=== PATIENT | female | born 1985 | race African-American/Black ===

== ENCOUNTER 2023-06-04 20:04 | Emergency (ER) | payer MEDICAID ==
[~2023-06-04] VITALS: Ht 167.6 cm; Wt 91.0 kg
[2023-06-04 20:24] VITALS: BP 124/86; O2SAT 98
[2023-06-04] MEDS ORDERED: ACETAMINOPHEN 325MG TABLET PO ONE (20:45)
[2023-06-04 22:04] VITALS: PULSE 86; RESP 19; TEMP 98
== END 2023-06-04 22:05 | disposition home or self-care (01) ==
LOC: ER 20:04
DX: O9A.211 Injury, poisoning and certain other consequences of external causes complicating pregnancy, first trimester (principal); S89.92XA Unspecified injury of left lower leg, initial encounter; Z3A.13 13 weeks gestation of pregnancy; W18.39XA Other fall on same level, initial encounter; Y93.89 Activity, other specified; Y92.89 Other specified places as the place of occurrence of the external cause; Y99.8 Other external cause status
CPT/HCPCS: 29505; 73560; 73590; 99284